=== PATIENT | male | born 1975 | race Caucasian/White ===

== ENCOUNTER 2016-09-09 21:16 | Emergency (ER) | payer OTHER ==
[~2016-09-09] VITALS: Ht 190.5 cm; Wt 74.0 kg
[~2016-09-09 21:16] MED LIST: AMLODIPINE BESY10 MG PO; BENAZEPRIL HCL40 MG PO; CIPROFLOXACIN500 M1 PO; ENDOCET 5-3251 EACH PO; HYDROCODON-ACE1 EAC7 PO; KEFLEX500 MG PO; PERCOCET 10-321 EACH PO; PERCOCET 5-3251 EACH PO; PERCOCET 5/31 TABLET PO
[2016-09-09 22:41] LABS: HEMATOCRIT 53.7 % (38.0-50.0); MCH 31.6 PG (29.0-34.0); MCHC 34.1 G/DL (30.0-36.0); MCV 92.6 FL (86-99); MEAN PLAT.VOLUME 10.7 uM^3 (9.0-12.4); PLATELET COUNT 150 K/uL (156-360); RBC DIS.WIDTH-CV 13.3 % (11.8-14.6); RBC DIS.WIDTH-SD 43.8 % (39-53)
[2016-09-09 22:49] LABS: CHLORIDE 107 mEq/L (99-109); POTASSIUM 3.8 mEq/L (3.7-5.4); SODIUM 143 mEq/L (136-147)
[2016-09-09 22:51] LABS: GLUCOSE 65 mg/dL (70-99)
[2016-09-09 22:52] LABS: ANION GAP 9 MEQ/L (2-14)
[2016-09-09 22:55] LABS: GFR ESTIMATE (CALCULATED) 44 mL/min/
[2016-09-09 22:56] LABS: UREA NITROGEN (BUN) 21 mg/dL (9-23)
[2016-09-09 23:01] LABS: TROP-I INTERPRETATION NEGATIVE; TROPONIN-I < 0.01 ng/mL (0.0-0.30)
[2016-09-10 00:44] LABS: TROP-I INTERPRETATION NEGATIVE; TROPONIN-I < 0.01 ng/mL (0.0-0.30)
[2016-09-10] MEDS ORDERED: LISINOPRIL10 MG PO (01:28)
[2016-09-10 02:22] VITALS: BP 132/92
== END 2016-09-10 02:23 | disposition left against medical advice (07) ==
LOC: EME 21:16
PROVIDERS: Emergency Medicine
DX: R07.89 Other chest pain (principal); I10 Essential (primary) hypertension; Z87.442 Personal history of urinary calculi; F17.200 Nicotine dependence, unspecified, uncomplicated
CPT/HCPCS: 71020; 80048; 84484; 85027; 93005; 99281; 99284

== ENCOUNTER 2016-12-30 12:16 | Emergency (ER) | payer OTHER ==
[~2016-12-30] VITALS: Ht 190.5 cm; Wt 71.0 kg
[~2016-12-30 12:16] MED LIST changes: +LISINOPRIL10 MG PO
[2016-12-30 14:32] LABS: BASOPHIL COUNT 0.1 K/uL (0-0.1); EOSINOPHIL (%) 0.2 % (0-5); HEMATOCRIT 51.9 % (38.0-50.0); IMMATURE GRANULOCYTE (%) 0.4 % (0.0-0.7); INSTRUMENT ABS NEUTROPHIL CT 6.5 K/uL; LYMPHOCYTE COUNT 0.9 K/uL (1.0-2.8); MCH 30.8 PG (29.0-34.0); MCHC 33.3 G/DL (30.0-36.0); MCV 92.5 FL (86-99); MEAN PLAT.VOLUME 10.4 uM^3 (9.0-12.4); MONOCYTE (%) 11.8 % (3-12); NEUTROPHIL (%) 76.8 % (45-76); NEUTROPHIL COUNT 6.5 K/uL (1.8-6.4); PLATELET COUNT 166 K/uL (156-360); RBC DIS.WIDTH-CV 12.8 % (11.8-14.6); RBC DIS.WIDTH-SD 43.8 % (39-53); RED BLOOD COUNT 5.61 M/uL (4.00-5.50); WHITE BLOOD COUNT 8.5 K/uL (4.1-10.2)
[2016-12-30 14:45] LABS: CHLORIDE 107 mEq/L (99-109); POTASSIUM 3.7 mEq/L (3.7-5.4); SODIUM 137 mEq/L (136-147)
[2016-12-30 14:47] LABS: GLUCOSE 87 mg/dL (70-99)
[2016-12-30 14:48] LABS: ANION GAP 7 MEQ/L (2-14)
[2016-12-30 14:49] LABS: TOTAL BILIRUBIN 0.6 mg/dL (0.0-1.0)
[2016-12-30 14:51] LABS: ALKALINE PHOSPHATASE 66 IU/L (3-129); GFR ESTIMATE (CALCULATED) > 59 mL/min/
[2016-12-30 14:52] LABS: UREA NITROGEN (BUN) 16 mg/dL (9-23)
[2016-12-30 14:54] LABS: LIPASE 13 U/L (1.0-51.0)
[2016-12-30 15:10] LABS: ADD MIUA? YES; BILIRUBIN NEGATIVE; BLOOD LARGE; COLOR BLOODY ((YELLOW)); GLUCOSE (STRIP) NEGATIVE; KETONES NEGATIVE; LEUKOCYTES SMALL; NITRITE NEGATIVE; PH, URINE 6.5 (5-8); PROTEIN (STRIP) 100; SPECIFIC GRAVITY 1.012 (1.000-1.030); UROBILINOGEN 0.2 MG/DL (0.2-1.0)
[2016-12-30 15:27] LABS: RED BLOOD CELLS TNTC /HPF (0-5)
[2016-12-30 15:28] LABS: UCUL ADDED? YES; WHITE BLOOD CELLS TNTC /HPF (0-5)
[2016-12-30] MEDS ORDERED: PRINIVIL10 MG PO (18:14)
[2016-12-30] MEDS ORDERED: AMLODIPINE BESY10 MG PO (18:14)
[2016-12-30] MEDS ORDERED: PERCOCET 5/31 TABLET PO (18:14)
[2016-12-30] MEDS ORDERED: LEVAQUIN500 MG PO (18:30)
[2016-12-30 18:32] VITALS: BP 155/103
== END 2016-12-30 18:44 | disposition home or self-care (01) ==
LOC: EME 12:16
PROVIDERS: Emergency Medicine
DX: N39.0 Urinary tract infection, site not specified (principal); Q61.3 Polycystic kidney, unspecified; Q44.6 Cystic disease of liver; I10 Essential (primary) hypertension; T46.5X6A Underdosing of other antihypertensive drugs, initial encounter; Z91.128 Patient's intentional underdosing of medication regimen for other reason
CPT/HCPCS: 74176; 80053; 81003; 83690; 85025; 87077; 87086; 87186; 99281; 99285; J2405; J3010; J7030

== ENCOUNTER 2017-08-02 17:48 | Inpatient (IN) | payer OTHER ==
[~2017-08-02] VITALS: Ht 190.5 cm; Wt 71.7 kg
[~2017-08-02 17:48] MED LIST changes: +LEVAQUIN500 MG PO; +PRINIVIL10 MG PO
[2017-08-02 18:29] LABS: EOSINOPHIL (%) 1.3 % (0-5); EOSINOPHIL COUNT 0.1 K/uL (0-0.3); HEMATOCRIT 49.1 % (38.0-50.0); IMMATURE GRANULOCYTE (%) 0.3 % (0.0-0.7); INSTRUMENT ABS NEUTROPHIL CT 4.5 K/uL; MCH 31.2 PG (29.0-34.0); MCHC 33.2 G/DL (30.0-36.0); MCV 93.9 FL (86-99); MEAN PLAT.VOLUME 10.7 uM^3 (9.0-12.4); MONOCYTE (%) 12.5 % (3-12); MONOCYTE COUNT 0.8 K/uL (0-0.8); NEUTROPHIL (%) 70.6 % (45-76); NEUTROPHIL COUNT 4.5 K/uL (1.8-6.4); PLATELET COUNT 114 K/uL (156-360); RBC DIS.WIDTH-CV 12.9 % (11.8-14.6); RBC DIS.WIDTH-SD 45.1 % (39-53); RED BLOOD COUNT 5.23 M/uL (4.00-5.50); WHITE BLOOD COUNT 6.4 K/uL (4.1-10.2)
[2017-08-02 18:35] LABS: INTER. NORMALIZED RATIO 1.1
[2017-08-02 18:37] LABS: PTT 34.2 SEC (25-37)
[2017-08-02 18:40] LABS: CHLORIDE 107 mEq/L (99-109); POTASSIUM 3.5 mEq/L (3.7-5.4); SODIUM 141 mEq/L (136-147)
[2017-08-02 18:41] LABS: GLUCOSE 73 mg/dL (70-99)
[2017-08-02 18:43] LABS: ANION GAP 10 MEQ/L (2-14)
[2017-08-02 18:45] LABS: GFR ESTIMATE (CALCULATED) 47 mL/min/ (58.99-99999)
[2017-08-02 18:46] LABS: UREA NITROGEN (BUN) 20 mg/dL (9-23)
[2017-08-02 19:11] LABS: HDL CHOLESTEROL 31 MG/DL (Desirable>=40); LDL CHOLESTEROL 60 mg/dL (Desirable<100); NON-HDL CHOLESTEROL 73 mg/dL (Desirable<160); TOTAL CHOLESTEROL 104 mg/dL (Desirable<200); TRIGLYCERIDES 66 MG/DL (Normal: <150)
[2017-08-02 20:20] LABS: Estimated Average Glucose 105 mg/dL (70-123); HEMOGLOBIN A1c (GLYCOHEMOGLOB) 5.3 % HGB (Below 5.7)
[2017-08-02] MEDS ORDERED: LISINOPRIL20 MG PO (20:30)
[2017-08-02] MEDS ORDERED: PERCOCET 5/31 TABLET PO (20:31)
[2017-08-02] MEDS ORDERED: RISPERDAL (20:47)
[2017-08-02] MEDS ORDERED: DAYTIME COLD-F118 ML PO (20:48)
[2017-08-02 21:33] LABS: SAMPLE HEMOLYSIS CHECK 0; SAMPLE ICTERIC CHECK 0; SAMPLE LIPEMIA CHECK 0
[2017-08-02 22:05] LABS: SERUM ETHYL ALCOHOL < 10 mg/dL
[2017-08-02 23:54] VITALS: BP 177/100
[2017-08-03 01:49] LABS: POINT-OF-CARE METER ID UU13113717
[2017-08-03 03:56] VITALS: BP 153/95
[2017-08-03 07:13] LABS: ADD MIUA? YES; BILIRUBIN NEGATIVE; BLOOD MODERATE; COLOR YELLOW ((YELLOW)); GLUCOSE (STRIP) NEGATIVE; KETONES NEGATIVE; LEUKOCYTES TRACE; NITRITE NEGATIVE; PROTEIN (STRIP) 30; UROBILINOGEN 0.2 MG/DL (0.2-1.0)
[2017-08-03 07:26] LABS: BACTERIA RARE /HPF; EPITHELIAL CELLS NONE SEEN /HPF; MUCUS TRACE /LPF; RED BLOOD CELLS TNTC /HPF (0-5); UCUL ADDED? YES
[2017-08-03 07:36] LABS: AMPHETAMINES QUANT VALUE 0 NG/ML; BARBITUATES QUANT VALUE 0 NG/ML; BENZODIAZEPINES QUANT VALUE 0 NG/ML; BENZODIAZEPINES, URINE SCREEN Negative (200 ng/mL); MARIJUANA QUANT VALUE 0 NG/ML; OPIATES QUANTITATIVE VALUE 0 NG/ML; PHENCYCLIDINE QUANT VALUE 0 NG/ML
[2017-08-03 07:49] VITALS: BP 158/107
[2017-08-03 08:20] LABS: POINT-OF-CARE METER ID UU14174225
[2017-08-03 08:48] LABS: ANION GAP 5 MEQ/L (2-14); CHLORIDE 110 MEQ/L (99-109); GFR ESTIMATE (CALCULATED) 51 mL/min/ (58.99-99999); POTASSIUM 3.5 MEQ/L (3.7-5.4); SAMPLE HEMOLYSIS CHECK 0; SAMPLE ICTERIC CHECK 0; SAMPLE LIPEMIA CHECK 0; SODIUM 142 MEQ/L (136-147); UREA NITROGEN (BUN) 16 mg/dL (9-23)
[2017-08-03 08:52] LABS: GLUCOSE 93 mg/dL (70-99)
[2017-08-03 11:17] VITALS: BP 171/111
[2017-08-03 11:52] LABS: POINT-OF-CARE METER ID UU14174225
[2017-08-03 16:13] LABS: APPEARANCE CLEAR/COLORLESS
[2017-08-03 16:16] LABS: RED CELL DILUTION 1
[2017-08-03 16:17] LABS: RED CELL AREA COUNTED 18; RED CELL COUNT 2 /MM^3 (0-1); WBC AREA COUNTED 18; WBC DILUTION 1; WHITE CELL COUNT 0 /MM^3 (0-5); WHITE CELL RAW COUNT 0
[2017-08-03 16:18] LABS: CSF EOSINOPHILS 0 % (0-25); MONO RAW COUNT 1; MONONUCLEAR WBC'S 100 % (50-90); POLYNUCLEAR WBC'S 0 % (0-3)
[2017-08-03 16:20] VITALS: BP 168/98
[2017-08-03 16:41] LABS: CSF LDH < 25 IU/L
[2017-08-03 17:17] LABS: POINT-OF-CARE METER ID UU14174225
[2017-08-03 19:02] VITALS: BP 154/115
[2017-08-03 23:52] VITALS: BP 147/97
[2017-08-04 03:32] VITALS: BP 154/96
[2017-08-04 06:45] LABS: BASOPHIL COUNT 0.1 K/uL (0-0.1); EOSINOPHIL (%) 2.2 % (0-5); EOSINOPHIL COUNT 0.2 K/uL (0-0.3); HEMATOCRIT 49.2 % (38.0-50.0); IMMATURE GRANULOCYTE (%) 0.4 % (0.0-0.7); INSTRUMENT ABS NEUTROPHIL CT 5.1 K/uL; LYMPHOCYTE COUNT 1.7 K/uL (1.0-2.8); MCH 30.4 PG (29.0-34.0); MCHC 32.5 G/DL (30.0-36.0); MCV 93.5 FL (86-99); MEAN PLAT.VOLUME 10.7 uM^3 (9.0-12.4); MONOCYTE (%) 10.8 % (3-12); MONOCYTE COUNT 0.9 K/uL (0-0.8); NEUTROPHIL (%) 64.7 % (45-76); NEUTROPHIL COUNT 5.1 K/uL (1.8-6.4); PLATELET COUNT 134 K/uL (156-360); RBC DIS.WIDTH-SD 44.6 % (39-53); RED BLOOD COUNT 5.26 M/uL (4.00-5.50); WHITE BLOOD COUNT 7.9 K/uL (4.1-10.2)
[2017-08-04 07:09] LABS: ANION GAP 9 MEQ/L (2-14); CHLORIDE 110 MEQ/L (99-109); GFR ESTIMATE (CALCULATED) 51 mL/min/ (58.99-99999); GLUCOSE 121 mg/dL (70-99); POTASSIUM 3.6 MEQ/L (3.7-5.4); SAMPLE HEMOLYSIS CHECK 0; SAMPLE ICTERIC CHECK 0; SAMPLE LIPEMIA CHECK 0; SODIUM 144 MEQ/L (136-147); UREA NITROGEN (BUN) 22 mg/dL (9-23)
[2017-08-04 07:45] VITALS: BP 130/80
[2017-08-04 16:16] VITALS: BP 134/82
[2017-08-04 23:33] VITALS: BP 118/87
[2017-08-05 07:02] VITALS: BP 119/81
[2017-08-05] MEDS ORDERED: ASPIR-LOW81 MG PO (13:15)
[2017-08-05] MEDS ORDERED: AMOX TR-K CLV1 EAC4 PO (13:15)
[2017-08-05] MEDS ORDERED: AMLODIPINE BESY10 MG PO (13:15)
[2017-08-05] MEDS ORDERED: TRAMADOL HCL50 MG PO (13:15)
[2017-08-05] MEDS ORDERED: ATORVASTATIN CA80 MG PO (13:15)
[2017-08-05] MEDS ORDERED: DOCUSATE SODIU100 MG PO (13:15)
[2017-08-05] MEDS ORDERED: LISINOPRIL20 MG PO (13:15)
[2017-08-05] MEDS ORDERED: NICOTINE PATCH1 EAC2 TD (13:15)
[2017-08-05] MEDS ORDERED: NASAL DECONGEST30 ML BOTH NARES (13:15)
== END 2017-08-05 13:59 | disposition home or self-care (01) | DRG 556 ==
LOC: EME 17:48 → EDOF 20:46 → 5SOUTH 20:46 → ENRESERV 20:48 → 5SOUTH 23:47
PROVIDERS: Emergency Medicine; Hospitalist; Internal Medicine; Physician Assistant Medical
PROC: 009U3ZX Drainage of Spinal Canal, Percutaneous Approach, Diagnostic (ICD-10-PCS; principal; 2017-08-03)
DX: M62.81 Muscle weakness (generalized) (principal); G43.109 Migraine with aura, not intractable, without status migrainosus; I16.0 Hypertensive urgency; H53.8 Other visual disturbances; H57.12 Ocular pain, left eye; R29.810 Facial weakness; D69.6 Thrombocytopenia, unspecified; I12.9 Hypertensive chronic kidney disease with stage 1 through stage 4 chronic kidney disease, or unspecified chronic kidney disease; N18.3 Chronic kidney disease, stage 3 (moderate); J32.0 Chronic maxillary sinusitis; Q61.3 Polycystic kidney, unspecified; M54.12 Radiculopathy, cervical region; R31.9 Hematuria, unspecified; Z82.49 Family history of ischemic heart disease and other diseases of the circulatory system; F17.210 Nicotine dependence, cigarettes, uncomplicated; Z82.71 Family history of polycystic kidney; Z87.442 Personal history of urinary calculi; Z91.19 Patient's noncompliance with other medical treatment and regimen
CPT/HCPCS: 62270; 70450; 70544; 70547; 70551; 77003; 80048; 80061; 80306 90; 81003; 82945; 82948; 83036; 83615 91; 84157; 85025; 85610; 85730; 87070; 87086; 87205; 89051; 93005; 93306; 97530 GO; 99281; 99285; G0480; J0360; J1644; J1815; J2060; J7030

== ENCOUNTER 2017-10-15 11:15 | Emergency (ER) | payer OTHER ==
[~2017-10-15] VITALS: Ht 190.5 cm; Wt 72.2 kg
[~2017-10-15 11:15] MED LIST changes: +AMOX TR-K CLV1 EAC4 PO; +ASPIR-LOW81 MG PO; +ATORVASTATIN CA80 MG PO; +DAYTIME COLD-F118 ML PO; +DOCUSATE SODIU100 MG PO; +LISINOPRIL20 MG PO; +NASAL DECONGEST30 ML BOTH NARES; +NICOTINE PATCH1 EAC2 TD; +RISPERDAL; +TRAMADOL HCL50 MG PO
[2017-10-15 12:02] LABS: HEMATOCRIT 51.4 % (38.0-50.0); HEMOGLOBIN 17.3 G/DL (12.5-16.6); MCH 31.7 PG (29.0-34.0); MCHC 33.7 G/DL (30.0-36.0); MCV 94.1 FL (86-99); PLATELET COUNT 148 K/uL (156-360); RBC DIS.WIDTH-CV 13.2 % (11.8-14.6); RBC DIS.WIDTH-SD 45.3 % (39-53); RED BLOOD COUNT 5.46 M/uL (4.00-5.50); WHITE BLOOD COUNT 9.9 K/uL (4.1-10.2)
[2017-10-15 12:07] LABS: CHLORIDE 108 mEq/L (99-109); POTASSIUM 3.8 mEq/L (3.7-5.4); SODIUM 142 mEq/L (136-147)
[2017-10-15 12:09] LABS: GLUCOSE 125 mg/dL (70-99)
[2017-10-15 12:12] LABS: GFR ESTIMATE (CALCULATED) 39 mL/min/ (58.99-99999); SERUM ETHYL ALCOHOL < 10 mg/dL
[2017-10-15 12:14] LABS: UREA NITROGEN (BUN) 22 mg/dL (9-23)
[2017-10-15 12:16] LABS: ACETAMINOPHEN (TYLENOL) < 10 mcg/mL (10-30); SALICYLATE < 5.0 MG/DL (15-30)
[2017-10-15 13:57] LABS: APPEARANCE CLEAR ((CLEAR)); BILIRUBIN NEGATIVE; BLOOD SMALL; COLOR YELLOW ((YELLOW)); GLUCOSE (STRIP) NEGATIVE; KETONES NEGATIVE; LEUKOCYTES TRACE; NITRITE NEGATIVE; PROTEIN (STRIP) 100; SPECIFIC GRAVITY 1.012 (1.000-1.030); UROBILINOGEN 0.2 MG/DL (0.2-1.0)
[2017-10-15 14:21] LABS: BACTERIA RARE /HPF; EPITHELIAL CELLS NONE SEEN /HPF; HYALINE CASTS 0-5 /LPF; MUCUS TRACE /LPF; RED BLOOD CELLS 0-5 /HPF (0-5); UCUL ADDED? YES; WHITE BLOOD CELLS 20-30 /HPF (0-5)
[2017-10-15 14:23] LABS: AMPHETAMINE NEGATIVE (500 ng/mL); BARBITURATES NEGATIVE (200 ng/mL); BENZODIAZEPINES NEGATIVE (150 ng/mL); BUPRENORPHINE NEGATIVE (10 ng/mL); COCAINE NEGATIVE (150 ng/mL); METHADONE NEGATIVE (200 ng/mL); METHAMPHETAMINE NEGATIVE (500 ng/mL); OPIATES (MORPHINE) NEGATIVE (100 ng/mL); OXYCODONE PRESUMPTIVE POSITIVE (100 ng/mL); PHENCYCLIDINE NEGATIVE (25 ng/mL); PROPOXYPHENE NEGATIVE (300 ng/mL); THC CANNABINOIDS NEGATIVE (50 ng/mL); TRICYCLIC ANTIDEPRESSANTS NEGATIVE (300 ng/mL)
[2017-10-15 14:32] VITALS: BP 152/96
== END 2017-10-15 14:34 | disposition home or self-care (01) ==
LOC: EME 11:15
DX: T40.2X1A Poisoning by other opioids, accidental (unintentional), initial encounter (principal); I12.9 Hypertensive chronic kidney disease with stage 1 through stage 4 chronic kidney disease, or unspecified chronic kidney disease; N18.9 Chronic kidney disease, unspecified; I45.10 Unspecified right bundle-branch block; F17.200 Nicotine dependence, unspecified, uncomplicated
CPT/HCPCS: 80048; 81003; 85027; 87086; 93005; 99281; 99285; G0480; J2310; J7030